=== PATIENT | female | born 1970 | race Caucasian/White ===

== ENCOUNTER 2019-09-23 07:25 | Outpatient (CLI) | payer OTHER ==
--- NOTE | 2019-09-23 09:58 | CT ---
CT ABDOMEN AND PELVIS WITH AND WITHOUT IV CONTRAST: 09/23/2019 PROVIDED CLINICAL HISTORY: Microhematuria. COMPARISON: None. FINDINGS: The visualized lung bases are free of significant opacity. There are multiple nonobstructing calculi involving the left kidney, the largest of these is in the m id portion and measures about 7 mm. The remainder of the calcifications measure in the 2 to 3 mm rang e. No additional urinary tract calculi are evident. The liver, spleen, pancreas, kidneys and adrenal glands demonstrate an otherwise unremarkable CT appe arance. The delayed images demonstrate no evidence for a filling defect involving the renal collectin g systems, opacified ureters or urinary bladder. There is no bowel dilatation, significant free fluid or free air apparent. There is haziness to the c entral abdominal mesentery with prominent by number but not pathologically enlarged lymph nodes, nons pecific. There is no additional fat stranding. No evidence for lymph node enlargement elsewhere eithe r. The osseous structures demonstrate no concerning lytic or blastic lesions. The regional major vascula r structures appear unremarkable. IMPRESSION: 1. Nonobstructing left renal calculi as described. 2. Nonspecific haziness to the central abdominal mesentery with prominent by number but not pathologi gomez enlarged lymph nodes. This can be seen in the setting of sclerosing mesenteritis. POS: [facility]
== END 2019-09-23 07:26 | disposition home or self-care (01) ==
LOC: CT 07:25
PROVIDERS: ATTEND Internal Medicine
DX: K70.30 Alcoholic cirrhosis of liver without ascites (principal); K26.9 Duodenal ulcer, unspecified as acute or chronic, without hemorrhage or perforation; R31.29 Other microscopic hematuria; N20.0 Calculus of kidney
CPT/HCPCS: 74178